=== PATIENT | male | born 1960 | race Two or more races ===

== ENCOUNTER → 2024-04-17 | Outpatient (CLI) | payer MEDICARE, MEDICAID, SELFPAY ==
[2024-04-17 09:00] LABS: Basophils # (Auto) 0.1 Thou/mm3 (0.0-0.2); Basophils % (Auto) 1 % (0-2.5); Eosinophils # (Auto) 0.2 Thou/mm3 (0.0-0.5); Eosinophils % (Auto) 3 % (0-10); Hematocrit 44.5 % (41.0-53.0); Hemoglobin 14.8 g/dL (13.5-16.0); Immature Granulocytes % (Auto) 0 % (0-0); Immature Granulocytes Auto 0.03 Thou/mm3 (0.00-0.00); Lymphocytes # (Auto) 3.2 Thou/mm3 (1.0-4.8); Lymphocytes % (Auto) 40 % (10-50); Mean Corpuscular HGB Conc 33.3 g/dl (31.0-37.0); Mean Corpuscular Hemoglobin 30.3 pg (25.0-35.0); Mean Corpuscular Volume 91 fL (80-100); Monocytes # (Auto) 0.5 Thou/mm3 (0.0-0.8); Monocytes % (Auto) 6 % (0-12); Neutrophils % (Auto) 50 % (37-80); Nucleated Red Blood Cell % 0 /100 WBC (0); Platelet Count 317 Thou/mm3 (140-440); RDW Standard Deviation 42.2 fL (35.1-43.9); Red Blood Count 4.88 Miln/mm3 (4.50-5.90)
[2024-04-17 09:12] LABS: Glucose Estimated Average 229 mg/dL (80-131); Hemoglobin A1C 9.6 % Hgb (4.8-6.0)
[2024-04-17 09:39] LABS: Cardiac Risk Estimate 4.7 RATIO (4.0-6.7); Cholesterol 180 mg/dL (132-200); HDL Cholesterol 38 mg/dL (40-60); LDL Cholesterol,Calculated 82 mg/dL (0-130); Triglycerides 299 mg/dL (30-150)
[2024-04-17 09:40] LABS: Creatinine MALB Rnd Ur 70 mg/dL (30-125); Microalbumin Creat Ratio 46 mg/gCrea (<30); Microalbumin, Random Urine 32 mg/L (0-300)
== END | disposition home or self-care (01) ==
LOC: COPL 07:37
PROVIDERS: PCP Nurse Practitioner Family; Referring Provider Nurse Practitioner Family; Visit Provider Nurse Practitioner Family
DX: E11.65 Type 2 diabetes mellitus with hyperglycemia (principal); E78.2 Mixed hyperlipidemia; Z79.899 Other long term (current) drug therapy
CPT/HCPCS: 36415; 80061; 82043; 82570; 83036; 85025

== ENCOUNTER 2024-07-04 14:02 | Emergency (ER) | payer MEDICARE, MEDICAID, SELFPAY ==
[2024-07-04 14:23] VITALS: BP 132/83; PULSE 106; RESP 18; TEMP 36.8; O2SAT 98
--- NOTE | 2024-07-04 14:31 | XR_ITS ---
Examination: Shoulder,left, 3 views Technique: Shoulder AP internal rotation, AP external rotation, Y view shoulder, 3 views Exam date and time :July 04, 2024 1432 hours INDICATIONS: Left shoulder pain beginning one month ago after falling FINDINGS: No shoulder fracture or dislocation Mild to moderate narrowing glenohumeral joint No AC joint separation IMPRESSION: Mild to moderate narrowing glenohumeral joint
--- NOTE | 2024-07-04 15:38 | EDNOTE_ITS ---
ED Back Injury Pain RME/HPI General Chief Complaint: Back Pain/Injury Stated Complaint: LEFT LOWER BACK PAIN Time Seen by Provider: 07/04/24 14:06 Arrival date/time: 07/04/24 14:02 64-year-old male presents emergency department today complaints of left sided shoulder and back pain patient for symptoms ongoing for the last couple of weeks patient reports pain is worse with movement and worse with lifting his left arm Limitations: no limitations Related Data Home Medications ?Medication ?Instructions ?Recorded ?Confirmed rosuvastatin 10 mg tablet (Crestor) 10 mg PO HS #0 tab s 01/07/16 10/04/22 sitagliptin phosphate 100 mg 100 mg PO QDAY #0 tabs 10/04/22 tablet (Januvia) aspirin 81 mg chewable tablet 81 mg PO DAILY 03/16/22 10/04/22 Held on 03/16/22. Instructions: Resume on 03/18/22. ibuprofen 800 mg tablet 800 mg PO TID PRN Pain 03/1610/04/22 lisinopril 5 mg tablet 5 mg PO DAILY 03/16/2210/04 metformin 1,000 mg tablet 1,000 mg PO BID 03/16/22 multivit,Ca,min-iron 8 mg-folic 1 tab PO DAILY 2 10/04/22 acid 200 mcg-lycopene 600 mcg tablet (Centrum Men) Previous Rx's ?Medication ?Instructions ?Recorded cyclobenzaprine 10 mg tablet 10 mg PO TID PRN muscle s pasm 10 07/04/24 days #30 tab-caps hydrocodone 5 mg-acetaminophen 325 1 tab PO BID PRN pa in #6 tabs 07/04/24 mg tablet meloxicam 7.5 mg tablet 7.5 mg PO QDAY 7 days #7 tab s 07/04/24 Allergies Allergy/AdvReac Type Severity Reaction Status Date / Time No Known Allergies Allergy Verified 07/04/24 14:04 Review of Systems Review of Systems Systems Reviewed: All systems reviewed, normal except as documented Constitutional Constitutional: Reports system reviewed and no additional complaints, except as documented, Denies fever(s) and Denies headache(s) Eyes Eyes: Reports system reviewed and no additional complaints, except as documented and Denies blurry vision ENT Ears, Nose, Mouth, and Throat: Reports system reviewed and no additional complaints, except as documented, Denies headache(s), Denies nasal congestion and Denies nasal discharge Cardiovascular Cardiovascular: Reports system reviewed and no additional complaints, except as documented, Denies chest pain and Denies dyspnea Respiratory Respiratory: Reports system reviewed and no additional complaints, except as documented, Denies chest congestion, Denies cough and Denies dyspnea Gastrointestinal Gastrointestinal: Reports system reviewed and no additional complaints, except as documented and Denies abdominal pain Musculoskeletal Musculoskeletal: Reports system reviewed and no additional complaints, except as documented, Reports back pain (Left shoulder pain), Denies joint swelling, Denies numbness, Reports stiffness and Denies tingling Integumentary/Breasts Skin/Breast: Reports system reviewed and no additional complaints, except as documented and Denies rash Neurologic Neurologic: Reports system reviewed and no additional complaints, except as documented, Reports as per HPI, Denies headache(s), Denies numbness and Denies tingling Past Medical History Past Medical History NEUROLOGIC: Negative Neurological Disorders CARDIAC: Positive Cardiac Disorders and Coronary Artery Disease (blocked artery); Negative Congestive Heart Failure RESPIRATORY: Positive Tuberculosis; Negative Chronic Obstructive Pulmonary Disease (COPD) GASTROINTESTINAL: Negative Gastrointestinal Disorders GENITOURINARY: Negative Genitourinary Disorders or Renal Disease MUSCULOSKELETAL: Negative Musculoskeletal Disorders ENDOCRINE: Positive Endocrine Disorders and Diabetes Mellitus Type 2; Negative Diabetes Mellitus Type 1 HEMATOLOGIC: Negative Blood Disorders OTHER HISTORY: Negative Cancer Surgical History SURGICAL: Positive Joint Replacement (nerve sx to tail bone) Social History SMOKING STATUS: Never smoker SUBSTANCE USE: does not use ED Exam General Limitations: Present no limitations General appearance: Present alert and in no apparent distress Head Head exam: Present atraumatic, normocephalic and normal inspection Eye Eye exam: Present normal appearance, PERRL and EOMI ENT ENT exam: Present normal exam, normal oropharynx and mucous membranes moist Neck Neck exam: Present normal inspection, full ROM and trachea midline Chest Chest inspection: Present normal inspection and symmetric chest wall rise Respiratory Respiratory exam: Present normal lung sounds bilaterally Cardiovascular Cardiovascular exam: Present regular rate, normal rhythm and normal heart sounds Abdominal Exam Abdominal exam: Present soft and normal bowel sounds; Absent distention or tenderness Extremities Exam Extremities exam: Present normal inspection and full ROM Back Exam Back exam: Present normal inspection and full ROM Back 1 view image: 2 1. Pain Neurological Exam Neurological exam: Present alert, oriented X3 and CN II-XII intact Psychiatric Psychiatric exam: Present normal affect and normal mood Skin Skin exam: Present warm, dry, intact and normal color Course Quality Measures none Orders Category Date Time Status XR shoulder LT min 2V Stat Exams 07/04/24 14:31 Completed CYCLObenzaPRINE [Flexeril] Med 07/04/24 14:31 Discontinued 10 mg PO X1 ONE Ketorolac Inj [Toradol Inj] Med 07/04/24 14:31 Discontinued 30 mg IM X1 ONE Vital Signs Vital signs: Vital Signs Temperature 98.2 F 07/04/24 14:23 Pulse Rate 106 H 07/04/24 14:23 Respiratory Rate 18 07/04/24 14:23 Blood Pressure 132/83 H 07/04/24 14:23 Pulse Oximetry (%) 98 07/04/24 14:23 Oxygen Delivery Method Room Air 07/04/24 14:23 O2 saturation 98% room air WNL Back Pain / Injury MDM Narrative MDM Narrative:: 64-year-old male presents emergency department today complaints of left sided shoulder and back pain patient for symptoms ongoing for the last couple of weeks patient reports pain is worse with movement and worse with lifting his left arm On exam patient has tenderness scapular region and left shoulder patient shows me that it hurts when he moves Imaging obtained no acute emergent findings noted patient does have chronic changes to his shoulder region which I do suspect is the cause of his pain Patient medicated here discharged home with pain meds Patient discharged home in no distress to follow-up with primary care doctor in the next 24 to 48 hours and for any worsening symptoms to return to the ER immediately Patient data External records reviewed:: [facility] previous records Clinical information provided by:: patient Social determinants that could affect healthcare access:: none Patient has the following chronic illnesses:: See history How is presenting disease/condition affected by chronic disease/condition?: u neffected by Evaluation data The following diagnostics were reviewed and interpreted by me:: radiology exam(s) Lab and/or radiology exams considered but not ordered:: Radiology obtained Interpretation Summary: Reviewed by me Medications / Prescriptions Medications or Prescriptions considered but not ordered:: Given Medication administrations:: Medication Administration History Discontinued Medications Cyclobenzaprine HCl (Cyclobenzaprine 5 Mg Tablet) 10 mg PO X1 ONE Stop: 07/04/24 14:32 Ketorolac Tromethamine (Ketorolac Inj 30 Mg/Ml Vial) 30 mg IM X1 ONE Stop: 07/04/24 14:32 Given Consultations Consultation(s) initiated? (list below): No Diagnosis Differential diagnosis back pain/injury: thoracic back pain and other (Back pain) Most likely diagnosis given after review of the tests above:: Back pain left shoulder pain Admission Indicated Admission indicated?: not indicated Admission Request Was there a request for admission?: No Disposition Plan Disposition Plan: Discharge Discharge Attestation Discharge Attestation: The patient and all family members were given an opportunity to ask questions and understood the discharge instructions. Discharge instructions specifically effects, indications for sooner follow up or return to the emergency department, and the expected course of current diagnosis. Patient condition: Stable Discharge Plan Plan Patient Disposition: HOME (Self Care) Disposition Comment: Stable Prescriptions/Referrals Prescriptions/Med Rec: New cyclobenzaprine 10 mg tablet 10 mg PO TID PRN (Reason: muscle spasm) 10 Days Qty: 30 0RF hydrocodone-acetaminophen 5-325 mg tablet 1 tab PO BID MDD 10 PRN (Reason: pain) Qty: 6 0RF meloxicam 7.5 mg tablet 7.5 mg PO QDAY 7 Days Qty: 7 0RF No Action rosuvastatin [Crestor] 10 MG tablet 10 mg PO HS Qty: 0 Januvia 100 MG tablet 100 mg PO QDAY Qty: 0 ibuprofen 800 mg Tablet 800 mg PO TID PRN (Reason: Pain) metformin 1,000 mg Tablet 1,000 mg PO BID lisinopril 5 mg Tablet 5 mg PO DAILY aspirin 81 mg tablet,chewable 81 mg PO DAILY Patient Comments: MASTIQUE Y PASE 1 TABLETA POR LA BOCA DIARIO Centrum Men 8 mg iron- 200 mcg-600 mcg Tablet 1 tab PO DAILY Problem List Clinical Impression: Arthritis of left shoulder Patient/Caregiver Discharge Instructions Education Materials: ED Osteoarthritis Additional Instructions: Please follow up with your primary care doctor in the next 24-48hrs for any worsening symptoms return here immediately Print Language: Dominican Stand Alone Forms: Brenda Award Info., Patient Portal Info Letter PA/CYCLE TOURING GUIDE Supervising Physician PA/CYCLE TOURING GUIDE Supervising Physician: Dr Phillips
== END 2024-07-04 17:00 | disposition home or self-care (01) ==
LOC: SERX 17:10
PROVIDERS: Emergency Provider Emergency Medicine
DX: M19.012 Primary osteoarthritis, left shoulder (principal); E11.9 Type 2 diabetes mellitus without complications
CPT/HCPCS: 73030; 99283